=== PATIENT | female | born 1995 | race African-American/Black ===

== ENCOUNTER 2017-01-29 11:09 | Emergency (ER) | payer MEDICAID ==
[~2017-01-29] VITALS: Ht 167.6 cm; Wt 57.0 kg
[2017-01-29 11:19] VITALS: BP 128/76
== END 2017-01-29 12:37 | disposition home or self-care (01) ==
LOC: ER 11:26
DX: N64.4 Mastodynia (principal)
CPT/HCPCS: 99281